=== PATIENT | male | born 1985 | race American Indian/Alaskan Native ===

== ENCOUNTER 2016-10-01 12:26 | Emergency (ER) | payer SELFPAY ==
[2016-10-01 12:31] VITALS: BP 156/94; PULSE 72; RESP 16; TEMP 98; O2SAT 100
--- NOTE | 2016-10-01 12:42 | ED PDOC ---
HPI: Psych/Substance Abuse Time Seen by Provider: 10/01/16 12:37 Chief Complaint (Nursing): Alcohol Ingestion Chief Complaint (Provider): Alcohol Ingestion History Per: EMS History/Exam Limitations: no limitations Onset/Duration Of Symptoms: Hrs (prior to arrival) Additional Complaint(s): Jordan Medrano, 30 year old male with a past medical history of alcohol abuse presents to the ED acutely intoxicated via ambulance. [place] vomited on route to the emergency room. Patient admits to daily use of alcohol. PMD: None Provided Past Medical History Reviewed: Historical Data, Nursing Documentation, Vital Signs Vital Signs: Last Vital Signs Temp 98.0 F 10/01/16 12:28 Pulse 72 10/01/16 12:28 Resp 16 10/01/16 12:28 BP 156/94 H 10/01/16 12:28 Pulse Ox 100 10/01/16 12:28 - Medical History PMH: Arthritis (oksana feet), Depression, HTN, Post Traumatic Stress Disorder, Sleep Apnea - Surgical History Surgical History: Tonsillectomy - Family History Family History: States: No Known Family Hx - Living Arrangements Living Arrangements: Other (non-domiciled) - Social History Current smoker - smoking cessation education provided: Yes Alcohol: > 2 Drinks/Day Drugs: Denies - Home Medications Home Medications: Ambulatory Orders Medication Instructions Recorded QUEtiapine [Seroquel] 300 mg PO DAILY 08/25/14 Sertraline [Zoloft] 100 mg PO BID 08/25/14 Ondansetron Hydrochloride 4 mg PO Q6 PRN #12 tab 10/04/14 QUEtiapine [SEROquel] 300 mg PO HS #30 tab 10/13/14 Sertraline [Zoloft] 100 mg PO DAILY #30 tab 10/13/14 hydrOXYzine Pamoate [Vistaril] 50 mg PO BID #60 cap 10/13/14 Hydroxyzine Pamoate [Vistaril] 100 mg PO DAILY #10 cap 12/15/14 Quetiapine Fumarate [Seroquel] 300 mg PO DAILY #10 tab 12/15/14 Sertraline [Zoloft] 100 mg PO BID #20 tab 12/15/14 - Allergies Allergies/Adverse Reactions: Allergies Allergy/AdvReac Type Severity Reaction Status Date / Time No Known Allergies Allergy Verified 05/29/15 07:41 Review of Systems ROS Statement: Except As Marked, All Systems Reviewed And Found Negative Gastrointestinal: Positive for: Nausea, Vomiting Psych: Positive for: Other (etoh) Physical Exam - Reviewed Nursing Documentation Reviewed: Yes Vital Signs Reviewed: Yes - Physical Exam Appears: Positive for: Well, Non-toxic, No Acute Distress Cardiovascular/Chest: Positive for: Regular Rate, Rhythm, Other (sutured laceration left anterior chest wall, sutures are clean, dry and intact, no acute infection noted. ) Respiratory: Positive for: CNT, Normal Breath Sounds Gastrointestinal/Abdominal: Positive for: Soft. Negative for: Tenderness, Distended, Guarding, Rebound Back: Negative for: L CVA Tenderness, R CVA Tenderness Extremity: Positive for: Normal ROM. Negative for: Pedal Edema Neurologic/Psych: Positive for: Alert, Oriented, Other (intoxicated, answers some questions appropriately) - Laboratory Results Result Diagrams: 10/01/16 12:55 10/01/16 12:55 - ECG O2 Sat by Pulse Oximetry: 100 (RA) Pulse Ox Interpretation: Normal Medical Decision Making Medical Decision Making: Time: 12:37 Impression: Alcohol Intoxication Plan: * Alcohol Serum * COMP Metabolic Panel * CBC (With Differential) * Zofran Inj 4 mg IM * Admit to ED obs Scribe Attestation: Documented by Alexandra Palmer, acting as a scribe for Rosa Cowan PA-C. Provider Scribe Attestation: All medical record entries made by the Scribe were at my direction and personally dictated by me. I have reviewed the chart and agree that the record accurately reflects my personal performance of the history, physical exam, medical decision making, and the department course for this patient. I have also personally directed, reviewed, and agree with the discharge instructions and disposition. ED OBSERVATION Date of observation admission: 10/01/16 Time of observation admission: 12:37 - Observation admission statement Patient is being placed in observation because:: ETOH intoxication - Goals of Observation Goals of observation are:: Monitor patient while acutely intoxicated, pending diagnostic testing results and sobriety - Progress Note Progress Note: 10/01/16 13:32 ETOH level is 98. Patient is awake and alert with steady gait. Patient is stable for discharge. Disposition - Clinical Impression Clinical Impression: Alcohol abuse with intoxication - Patient ED Disposition Is Patient to be Admitted: No Counseled Patient/Family Regarding: Studies Performed, Diagnosis, Need For Followup - Disposition Referrals: [facility] [Outside] Disposition: Routine/Home Disposition Time: 13:33 Condition: STABLE Additional Instructions: Follow up with clinic Instructions: Antibacterial Cleanser (On the skin), Alcohol Intoxication (ED), Abuse of Alcohol (ED) Forms: [employer] (Armenian)
[2016-10-01 13:03] LABS: BASO # 0.1 K/uL (0.0-0.2); EOS # 0.1 K/uL (0.0-0.7); EOS % 1.4 % (0.0-4.0); HEMOGLOBIN 14.5 g/dL (12.0-18.0); LYMPH # 1.9 K/uL (1.0-4.3); MEAN CELL VOLUME 94.4 fl (80.0-94.0); MEAN CORPUSCULAR HEMOGLOBIN 31.1 pg (27.0-31.0); MEAN CORPUSCULAR HGB CONC 32.9 g/dL (33.0-37.0); MEAN PLATELET VOLUME 6.9 fl (7.2-11.7); MONO # 0.5 K/uL (0.0-0.8); MONO % 8.1 % (0.0-10.0); NEUT # 3.4 K/uL (1.8-7.0); NEUT % 57.5 % (50.0-75.0); NRBC % 0.2 % (0.0-0.0); RBC 4.67 Mil/uL (4.40-5.90); WHITE BLOOD COUNT 5.9 K/uL (4.8-10.8)
[2016-10-01 13:16] LABS: ALB/GLOB RATIO 1.4 (1.0-2.1); ALBUMIN 4.4 g/dL (3.5-5.0); ALT/SGPT 44 U/L (21-72); AST/SGOT 34 U/L (17-59); BLOOD UREA NITROGEN 10 mg/dl (9-20); CALCIUM 9.4 mg/dL (8.4-10.2); GFR AFRICAN-AMERICAN > 60; GFR NON-AFRICAN AMERICAN > 60
== END 2016-10-01 13:41 | disposition home or self-care (01) ==
LOC: H.ER 12:26
DX: F10.129 Alcohol abuse with intoxication, unspecified (principal); F43.10 Post-traumatic stress disorder, unspecified; I10 Essential (primary) hypertension
CPT/HCPCS: 80053; 85025; 96372; 99281; G0480; J2405